=== PATIENT | female | born 2000 | race African-American/Black ===

== ENCOUNTER 2024-11-05 09:24 | Emergency (ER) | payer OTHER ==
[~2024-11-05] VITALS: Ht 167.6 cm; Wt 99.0 kg
[2024-11-05 10:14] VITALS: PULSE 57; RESP 16; TEMP 98.1; O2SAT 97
== END 2024-11-05 10:17 | disposition home or self-care (01) ==
LOC: FSED 09:29
DX: J02.8 Acute pharyngitis due to other specified organisms (principal); Z11.52 Encounter for screening for COVID-19
CPT/HCPCS: 0223U; 83518; 87400; 87420; 99283

== ENCOUNTER 2024-12-02 07:05 | Emergency (ER) | payer OTHER ==
[~2024-12-02] VITALS: Ht 167.6 cm; Wt 97.7 kg
[2024-12-02 07:15] VITALS: PULSE 60; RESP 16; TEMP 98.1; O2SAT 96
== END 2024-12-02 07:59 | disposition home or self-care (01) ==
LOC: FSED 07:54
DX: J30.9 Allergic rhinitis, unspecified (principal); Z11.52 Encounter for screening for COVID-19
CPT/HCPCS: 0223U; 83518; 87400; 99284